=== PATIENT | female | born 1950 | race Caucasian/White ===

== ENCOUNTER → 2018-09-24 | Outpatient (REF) | payer MEDICARE ==
[2018-09-24 14:07] LABS: BASO % 0.5 % (0.0-1.0); EOS # 0.1 10^3/uL (0.0-0.50); EOS % 1.2 % (0.0-3.0); HEMATOCRIT 45.5 % (36.0-47.0); HEMOGLOBIN 14.9 g/dl (12.0-15.5); LYMPH # 2.5 10^3/uL (1.5-4.5); LYMPH % 41.4 % (24.0-44.0); MEAN CORPUSCULAR HEMOGLOBIN 33.3 pg (27.0-33.0); MEAN CORPUSCULAR HGB CONC 32.7 g/dl (32.0-36.5); MEAN CORPUSCULAR VOLUME 101.8 fl (80.0-96.0); MONO # 0.5 10^3/uL (0.0-0.8); MONO % 8.4 % (0.0-5.0); NEUTROPHILS # 2.9 10^3/uL (1.8-7.7); NEUTROPHILS % 48.2 % (36.0-66.0); PLATELET COUNT, AUTOMATED 219 10^3/uL (150-450); RED BLOOD COUNT 4.47 10^6/uL (4.00-5.40); WHITE BLOOD COUNT 5.9 10^3/uL (4.0-10.0)
[2018-09-24 14:36] LABS: ERYTHROCYTE SEDIMENTATION RATE 34 mm/hr (0-30)
[2018-09-25 11:10] LABS: HEMOGLOBIN A1c 5.1 %
[2018-09-29 09:18] LABS: DRVV SCREEN 46.8 SEC
[2018-09-29 09:30] LABS: PTT LUPUS TYPE ANTICOAG SCREEN 1.1 (0-1.2)
[2018-09-29 14:13] LABS: ANCA-ATYPICAL <1:20 titer (Neg:<1:20); ANGIOTENSIN 1 CONVERTING ENZYM 50 U/L (14-82); ANTI DOUBLE STRAND-DNA AB <1 IU/mL (0-9); ANTINUCLEAR ANTIBODIES DIRECT Negative (Negative); CYTOPLASMIC NEUTROP AB ANCA-C <1:20 titer (Neg:<1:20); Lyme Disease IgG Ab 18 kDa Ban Absent (.); Lyme Disease IgG Ab 23 kDa Ban Absent (.); Lyme Disease IgG Ab 28 kDa Ban Absent (.); Lyme Disease IgG Ab 30 kDa Ban Absent (.); Lyme Disease IgG Ab 39 kDa Ban Absent (.); Lyme Disease IgG Ab 41 kDa Ban Absent (.); Lyme Disease IgG Ab 45 kDa Ban Absent (.); Lyme Disease IgG Ab 58 kDa Ban Absent (.); Lyme Disease IgG Ab 66 kDa Ban Absent (.); Lyme Disease IgG Ab 93 kDa Ban Absent (.); Lyme Disease IgG West Blot Int Negative (.); Lyme Disease IgG/IgM Antibodie <0.91 ISR (0.00-0.90); Lyme Disease IgM Ab 23 kDa Ban Present (.); Lyme Disease IgM Ab 39 kDa Ban Present (.); Lyme Disease IgM Ab 41 kDa Ban Present (.); Lyme Disease IgM Ab Quantitati 1.55 index (0.00-0.79); Lyme Disease IgM West Blot Int Positive (.); PERINUCLEAR AB ANCA-P <1:20 titer (Neg:<1:20); SJOGREN'S ANTI SS-A <0.2 AI (0.0-0.9); SJOGREN'S ANTI SS-B <0.2 AI (0.0-0.9); VITAMIN B1 LEVEL WHOLE BLOOD 41.5 nmol/L (66.5-200.0); VITAMIN E(ALPHA TOCOPHEROL) 9.9 mg/L (9.0-29.0); VITAMIN E(GAMMA TOCOPHEROL) 4.4 mg/L (0.5-4.9)
[2018-10-01 13:22] LABS: BLOOD UREA NITROGEN 20 MG/DL (7-18); CARBON DIOXIDE LEVEL 19 MEQ/L (21-32); CREATININE FOR GFR 1.11 MG/DL (0.55-1.30); GLOMERULAR FILTRATION RATE 52.4 (>45); GLUCOSE, FASTING 88 MG/DL (70-100); POTASSIUM SERUM 4.4 MEQ/L (3.5-5.1); SODIUM LEVEL 142 MEQ/L (136-145)
[2018-10-01 13:23] LABS: CALCIUM LEVEL 9.3 MG/DL (8.8-10.2)
[2018-10-01 13:24] LABS: CHLORIDE LEVEL 103 MEQ/L (98-107)
[2018-10-01 13:29] LABS: ALT/SGPT 6 U/L (12-78); BILIRUBIN,TOTAL < 0.2 MG/DL (0.2-1.0)
[2018-10-01 13:30] LABS: ALBUMIN 4.2 GM/DL (3.2-5.2); FOLATE 5.5 NG/ML; RHEUMATOID FACTOR QUANT < 10.0 IU/ML (<15.0); THYROID STIMULATING HORMONE 0.535 uIU/ML (0.358-3.740); VITAMIN B12 LEVEL 581 PG/ML
== END ==
LOC: M LABNEURO 11:05
PROVIDERS: ATTEND Psychiatry & Neurology Neurology
DX: R42 Dizziness and giddiness (principal); R94.02 Abnormal brain scan

== ENCOUNTER → 2021-06-14 | Outpatient (REF) | payer MEDICARE | LOC: M LAB REF 17:08 | PROVIDERS: ATTEND Internal Medicine Nephrology | DX: N18.32 Chronic kidney disease, stage 3b (principal) ==

== ENCOUNTER → 2021-09-18 | Outpatient (CLI) | payer MEDICARE ==
--- NOTE | 2021-09-18 10:49 | REP ---
INDICATION: CKD STAGE 3 COMPARISON: None TECHNIQUE: Real time caballero scale ultrasound examination using curved array transducer followed by color Doppler evaluation of the renal vasculature. FINDINGS: The bilateral kidneys are normal in reniform shape and increased parenchymal echotexture consistent with medical renal disease. No hydronephrosis, nephrolithiasis, or cystic/mass lesions appreciated. Bladder is unremarkable. Right kidney measures 9.7 x 4.2 x 5.1 cm. Left kidney measures 7.8 x 3.6 x 4.1 cm. Color Doppler evaluation. Peak aortic velocity: 61.2 set centimeters/second RIGHT KIDNEY Renal arterial velocity: ND centimeters/second Renal-aortic ratio: 1.1 Intrarenal resistive indices: 0.76-0.77 Intrarenal acceleration times: 0.025-0.042 LEFT KIDNEY Renal arterial velocity: 60.2 centimeters/second Renal-aortic ratio: 0.98 Intrarenal resistive indices: 0.56-0.73 Intrarenal acceleration times: 0.033-0.050 IMPRESSION: 1. Evidence for chronic medical renal disease. No hydronephrosis. 2. Doppler interegation without sonographic evidence for renal arterial stenosis. <Electronically signed by Low Owen > 09/18/21 [id number]
== END ==
LOC: M RAD 09:04
PROVIDERS: ATTEND Surgery Vascular Surgery
DX: I70.1 Atherosclerosis of renal artery (principal); N18.30 Chronic kidney disease, stage 3 unspecified

== ENCOUNTER 2021-12-22 23:23 | Inpatient (IN) | payer MEDICARE ==
[~2021-12-22] VITALS: Ht 152.4 cm; Wt 108.7 kg
[2021-12-23] VITALS (59 sets, daily range): BP systolic 73–149; BP diastolic 50–79
[2021-12-23] MEDS ORDERED: NOREPINEPHRINE 4 MG/4 ML AMP As Ordered ONE (00:52)
[2021-12-23] MEDS ORDERED: PHENYLEPHRINE HCL INJ 50 MG in D5W 495 ML IV SCH (01:35)
[2021-12-23] MEDS ORDERED: ALBUTEROL 90 MCG/ACT 8GM HFA INHALER INH PRN (02:10)
[2021-12-23] MEDS ORDERED: IPRATROPIUM 0.5MG/ALBUTEROL 2.5MG INH SOL UD 3ML (DUONEB) NEB PRN ×2 (02:10→09:55)
[2021-12-23 02:38] LABS: MEAN CORPUSCULAR HEMOGLOBIN 32.9 pg (27.0-33.0); MEAN CORPUSCULAR HGB CONC 32.3 g/dl (32.0-36.5); RED BLOOD COUNT 3.04 10^6/uL (4.00-5.40); WHITE BLOOD COUNT 4.7 10^3/uL (4.0-10.0)
[2021-12-23 02:50] LABS: APPEARANCE, URINE MANUAL HAZY (CLEAR); COLOR, URINE MANUAL YELLOW (YELLOW); GLUCOSE, URINE (UA) MANUAL NEGATIVE (NEGATIVE); KETONE, URINE MANUAL NEGATIVE (NEGATIVE); PROTEIN, URINE MANUAL NEGATIVE (NEGATIVE); UROBILINOGEN, URINE MANUAL NORMAL (NORMAL)
[2021-12-23 02:51] LABS: BILIRUBIN, URINE MANUAL 1+ (NEGATIVE); BLOOD URINE MANUAL TRACE (NEGATIVE); LEUKOCYTE ESTERASE, URINE MAN NEGATIVE (NEGATIVE); NITRITE, URINE MANUAL NEGATIVE (NEGATIVE)
[2021-12-23 02:57] LABS: BACTERIA, URINE NONE SEEN; SQUAMOUS EPITHELIAL CELL URINE NONE SEEN /hpf (SMALL AMT); TRANSITIONAL EPI CELLS, URINE MOD AMOUNT /hpf; WBC, URINE NONE SEEN /hpf (0-3)
[2021-12-23 02:58] LABS: AMORPHOUS SEDIMENT, URINE MOD AMOUNT (NEGATIVE)
[2021-12-23 03:01] LABS: CALCIUM LEVEL 8.1 MG/DL (8.8-10.2); CREATININE FOR GFR 2.68 MG/DL (0.55-1.30); GLOMERULAR FILTRATION RATE 18.8 (>45); POTASSIUM SERUM 3.5 MEQ/L (3.5-5.1)
[2021-12-23 03:08] LABS: PLATELET COUNT, AUTOMATED 56 10^3/uL (150-450)
[2021-12-23] MEDS ORDERED: VANCOMYCIN HCL 1,500 MG, VIAL MATE ADAPTER 1 EACH in NS 250 ML IV SCH (03:20)
[2021-12-23] MEDS ORDERED: NS 500 ML IV ONE ×3 (03:20→13:25)
[2021-12-23] MEDS ORDERED: NS 1,000 ML IV SCH (03:20)
[2021-12-23] MEDS ORDERED: ELIQ5TAB PO (03:32)
[2021-12-23] MEDS ORDERED: ANAS1TAB2 PO (03:32)
[2021-12-23] MEDS ORDERED: ALBU83IN NEB (03:32)
[2021-12-23] MEDS ORDERED: MIDO5TA PO (03:32)
[2021-12-23] MEDS ORDERED: FLUT1BLS8 IH (03:32)
[2021-12-23] MEDS ORDERED: MYRB50TA PO (03:32)
[2021-12-23] MEDS ORDERED: METO50TA7 PO (03:32)
[2021-12-23] MEDS ORDERED: ARIP10TA32 PO (03:32)
[2021-12-23] MEDS ORDERED: FARX1TAB3 PO (03:32)
[2021-12-23] MEDS ORDERED: ZOLO100T PO (03:32)
[2021-12-23] MEDS ORDERED: ASPI81CH33 PO (03:32)
[2021-12-23] MEDS ORDERED: PRED10TA2 PO (03:32)
[2021-12-23] MEDS ORDERED: TORS20TA2 PO (03:32)
[2021-12-23] MEDS ORDERED: PROT1TAB2 PO (03:32)
[2021-12-23] MEDS ORDERED: HOME MED LIST COMPLETE! XX SCH (03:35)
[2021-12-23] MEDS ORDERED: DIGOXIN INJ 0.5 MG/2 ML AMP (J1160) IV ONE ×2 (04:00→09:50)
[2021-12-23] MEDS ORDERED: PIPERACILLIN/TAZOBACTAM SOD 4.5 GM in D5W MINI-BAG PLUS 50 ML IV ONE (04:00)
[2021-12-23 04:16] LABS: ALBUMIN 2.3 GM/DL (3.2-5.2); BILIRUBIN,DIRECT 0.7 MG/DL (0.0-0.2); BILIRUBIN,TOTAL 1.9 MG/DL (0.2-1.0); TOTAL PROTEIN 5.5 GM/DL (6.4-8.2)
[2021-12-23 04:24] LABS: PLTBLUE- EDTA FREE CALC 36 K/mm3 (172-450)
[2021-12-23 04:50] LABS: PLTBLUE- EDTA FREE MACHINE 33 10^3/uL (172-450)
[2021-12-23] MEDS: VANCOMYCIN HCL 1,000 MG, VIAL MATE ADAPTER 1 EACH in NS 250 ML IV SCH (05:00)
[2021-12-23] MEDS ORDERED: VANCOMYCIN HCL 1,000 MG, VIAL MATE ADAPTER 1 EACH in NS 250 ML IV ONE (06:00)
[2021-12-23 08:32] LABS: HEMATOCRIT 29.7 % (36.0-47.0); HEMOGLOBIN 9.4 g/dl (12.0-15.5); MEAN CORPUSCULAR HEMOGLOBIN 32.9 pg (27.0-33.0); MEAN CORPUSCULAR HGB CONC 31.6 g/dl (32.0-36.5); MEAN CORPUSCULAR VOLUME 103.8 fl (80.0-96.0); RED BLOOD COUNT 2.86 10^6/uL (4.00-5.40); WHITE BLOOD COUNT 2.4 10^3/uL (4.0-10.0)
[2021-12-23 08:40] LABS: PLATELET COUNT, AUTOMATED 47 10^3/uL (150-450)
[2021-12-23 08:54] LABS: ALBUMIN 2.1 GM/DL (3.2-5.2); BILIRUBIN,TOTAL 2.1 MG/DL (0.2-1.0); CALCIUM LEVEL 7.9 MG/DL (8.8-10.2); CREATININE FOR GFR 2.31 MG/DL (0.55-1.30); GLOMERULAR FILTRATION RATE 22.3 (>45); POTASSIUM SERUM 4.1 MEQ/L (3.5-5.1); TOTAL PROTEIN 5.3 GM/DL (6.4-8.2)
[2021-12-23 09:17] LABS: EOSINOPHILS 1 % (0-3); LYMPHOCYTES 24 % (16-44); MONOCYTES 4 % (0-5); NEUTROPHILS 44 % (28-66)
[2021-12-23 09:20] LABS: PLATELET ESTIMATE MARKED DECREASE (NORMAL); POLYCHROMASIA 1+
[2021-12-23 09:52] LABS: INR 1.89; PROTHROMBIN TIME 22.1 SECONDS (12.7-14.5)
[2021-12-23] MEDS ORDERED: MIDODRINE 5 MG TAB PO SCH (10:00)
[2021-12-23] MEDS: MIDODRINE 5 MG TAB PO SCH ×2 (11:21→15:23)
[2021-12-23] MEDS: PIPERACILLIN/TAZOBACTAM SOD 4.5 GM in D5W MINI-BAG PLUS 50 ML IV SCH ×2 (11:35→20:21)
[2021-12-23] MEDS ORDERED: NS 1,000 ML IV ONE (12:00)
[2021-12-23] MEDS: NOREPINEPHRINE BITARTRATE 8 MG in D5W 492 ML IV SCH ×2 (14:00→20:21)
[2021-12-23] MEDS: PANTOPRAZOLE 20 MG TAB PO SCH (15:23)
[2021-12-23] MEDS: LEVALBUTEROL 1.25 MG/0.5 ML CONCENTRATE NEB NEB SCH ×2 (16:00→19:30)
[2021-12-24] VITALS (71 sets, daily range): BP systolic 75–126; BP diastolic 41–80
[2021-12-24] MEDS ORDERED: UNRESOLVED CLARIFICATION ENTRY XX SCH (00:01)
[2021-12-24] MEDS: PIPERACILLIN/TAZOBACTAM SOD 4.5 GM in D5W MINI-BAG PLUS 50 ML IV SCH ×3 (04:21→20:35)
[2021-12-24] MEDS: VANCOMYCIN HCL 1,000 MG, VIAL MATE ADAPTER 1 EACH in NS 250 ML IV SCH (05:32)
[2021-12-24 05:46] LABS: HEMATOCRIT 22.9 % (36.0-47.0); MEAN CORPUSCULAR HEMOGLOBIN 33.2 pg (27.0-33.0); MEAN CORPUSCULAR HGB CONC 31.9 g/dl (32.0-36.5); MEAN CORPUSCULAR VOLUME 104.1 fl (80.0-96.0); WHITE BLOOD COUNT 3.1 10^3/uL (4.0-10.0)
[2021-12-24 05:52] LABS: HEMOGLOBIN 7.3 g/dl (12.0-15.5); PLATELET COUNT, AUTOMATED 39 10^3/uL (150-450)
[2021-12-24 06:31] LABS: ALBUMIN 1.6 GM/DL (3.2-5.2); BILIRUBIN,TOTAL 1.4 MG/DL (0.2-1.0); CALCIUM LEVEL 7.6 MG/DL (8.8-10.2); CREATININE FOR GFR 1.73 MG/DL (0.55-1.30); GLOMERULAR FILTRATION RATE 31.1 (>45); POTASSIUM SERUM 3.3 MEQ/L (3.5-5.1); TOTAL PROTEIN 4.6 GM/DL (6.4-8.2)
[2021-12-24] MEDS ORDERED: POTASSIUM CHLORIDE 10MEQ SR TABLET PO ONE (07:45)
[2021-12-24] MEDS: LEVALBUTEROL 1.25 MG/0.5 ML CONCENTRATE NEB NEB SCH ×4 (08:02→20:16)
[2021-12-24] MEDS: TIOTROPIUM INHALER/CAPSULE (SPIRIVA) INH SCH (08:02)
[2021-12-24] MEDS: PANTOPRAZOLE 20 MG TAB PO SCH (08:16)
[2021-12-24] MEDS: MIDODRINE 5 MG TAB PO SCH ×3 (08:16→16:23)
[2021-12-24 13:10] LABS: CORTISOL AM 38.7 UG/DL (4.3-22.4)
[2021-12-24 13:53] LABS: LYMPHOCYTES 22 % (16-44); MONOCYTES 5 % (0-5); NEUTROPHILS 68 % (28-66)
[2021-12-24 13:54] LABS: ANISOCYTOSIS 1+; PLATELET ESTIMATE MARKED DECREASE (NORMAL)
[2021-12-24 14:47] LABS: EOS % 0.3 % (0.0-3.0); HEMOGLOBIN 7.5 g/dl (12.0-15.5); LYMPH # 0.4 10^3/uL (1.5-5.0); LYMPH % 12.4 % (24.0-44.0); MEAN CORPUSCULAR HEMOGLOBIN 32.8 pg (27.0-33.0); MEAN CORPUSCULAR HGB CONC 31.3 g/dl (32.0-36.5); MEAN CORPUSCULAR VOLUME 104.8 fl (80.0-96.0); MONO # 0.2 10^3/uL (0.0-0.8); MONO % 5.5 % (2.0-8.0); NEUTROPHILS # 2.8 10^3/uL (1.5-8.5); NEUTROPHILS % 81.8 % (36.0-66.0); RED BLOOD COUNT 2.29 10^6/uL (4.00-5.40); WHITE BLOOD COUNT 3.5 10^3/uL (4.0-10.0)
[2021-12-24 14:49] LABS: PLATELET COUNT, AUTOMATED 44 10^3/uL (150-450)
[2021-12-24 18:03] LABS: ALBUMIN 1.8 GM/DL (3.2-5.2); BILIRUBIN,TOTAL 1.1 MG/DL (0.2-1.0); CALCIUM LEVEL 8.3 MG/DL (8.8-10.2); CREATININE FOR GFR 1.58 MG/DL (0.55-1.30); GLOMERULAR FILTRATION RATE 34.5 (>45); POTASSIUM SERUM 3.6 MEQ/L (3.5-5.1); TOTAL PROTEIN 4.9 GM/DL (6.4-8.2)
[2021-12-24] MEDS: LEVALBUTEROL 1.25 MG/0.5 ML CONCENTRATE NEB NEB PRN (18:21)
[2021-12-24] MEDS ORDERED: FUROSEMIDE 40MG/4ML VIAL (J1940) IV ONE (19:05)
[2021-12-25] VITALS (28 sets, daily range): BP systolic 88–129; BP diastolic 58–83
[2021-12-25] MEDS: PIPERACILLIN/TAZOBACTAM SOD 4.5 GM in D5W MINI-BAG PLUS 50 ML IV SCH ×3 (04:23→20:02)
[2021-12-25] MEDS ORDERED: FUROSEMIDE 40MG/4ML VIAL (J1940) IV ONE (04:35)
[2021-12-25 04:37] LABS: HEMATOCRIT 22.7 % (36.0-47.0); HEMOGLOBIN 7.3 g/dl (12.0-15.5); LYMPH # 0.5 10^3/uL (1.5-5.0); LYMPH % 18.4 % (24.0-44.0); MEAN CORPUSCULAR HEMOGLOBIN 33.5 pg (27.0-33.0); MEAN CORPUSCULAR HGB CONC 32.2 g/dl (32.0-36.5); MEAN CORPUSCULAR VOLUME 104.1 fl (80.0-96.0); MONO # 0.2 10^3/uL (0.0-0.8); MONO % 5.8 % (2.0-8.0); NEUTROPHILS # 2.2 10^3/uL (1.5-8.5); NEUTROPHILS % 74.1 % (36.0-66.0); RED BLOOD COUNT 2.18 10^6/uL (4.00-5.40); WHITE BLOOD COUNT 2.9 10^3/uL (4.0-10.0)
[2021-12-25 04:38] LABS: PLATELET COUNT, AUTOMATED 47 10^3/uL (150-450)
[2021-12-25 05:00] LABS: ALBUMIN 1.7 GM/DL (3.2-5.2); CREATININE FOR GFR 1.62 MG/DL (0.55-1.30); GLOMERULAR FILTRATION RATE 33.5 (>45); POTASSIUM SERUM 3.4 MEQ/L (3.5-5.1); VANCOMYCIN LEVEL TROUGH 16.2 UG/ML (10.0-20.0)
[2021-12-25] MEDS: VANCOMYCIN HCL 1,000 MG, VIAL MATE ADAPTER 1 EACH in NS 250 ML IV SCH (05:25)
[2021-12-25] MEDS ORDERED: POTASSIUM CHLORIDE 10MEQ SR TABLET PO ONE ×2 (05:50→09:00)
[2021-12-25] MEDS: TIOTROPIUM INHALER/CAPSULE (SPIRIVA) INH SCH (08:05)
[2021-12-25] MEDS: LEVALBUTEROL 1.25 MG/0.5 ML CONCENTRATE NEB NEB SCH ×4 (08:05→20:10)
[2021-12-25] MEDS: PANTOPRAZOLE 20 MG TAB PO SCH (08:15)
[2021-12-25] MEDS: MIDODRINE 5 MG TAB PO SCH ×3 (08:15→17:04)
[2021-12-25 08:17] LABS: MAGNESIUM LEVEL 2.1 MG/DL (1.8-2.4)
[2021-12-25] MEDS: METOPROLOL TART 12.5 MG PER 1/2 TAB PO SCH ×4 (08:58→23:51)
[2021-12-26] VITALS (23 sets, daily range): BP systolic 97–143; BP diastolic 59–101
[2021-12-26] MEDS: LEVALBUTEROL 1.25 MG/0.5 ML CONCENTRATE NEB NEB PRN (01:29)
[2021-12-26] MEDS: PIPERACILLIN/TAZOBACTAM SOD 4.5 GM in D5W MINI-BAG PLUS 50 ML IV SCH ×3 (04:17→20:16)
[2021-12-26 05:31] LABS: HEMATOCRIT 23.7 % (36.0-47.0); HEMOGLOBIN 7.2 g/dl (12.0-15.5); MEAN CORPUSCULAR HEMOGLOBIN 32.4 pg (27.0-33.0); MEAN CORPUSCULAR HGB CONC 30.4 g/dl (32.0-36.5); MEAN CORPUSCULAR VOLUME 106.8 fl (80.0-96.0); RED BLOOD COUNT 2.22 10^6/uL (4.00-5.40)
[2021-12-26] MEDS: VANCOMYCIN HCL 1,000 MG, VIAL MATE ADAPTER 1 EACH in NS 250 ML IV SCH (05:32)
[2021-12-26 05:35] LABS: PLATELET COUNT, AUTOMATED 68 10^3/uL (150-450)
[2021-12-26] MEDS: METOPROLOL TART 12.5 MG PER 1/2 TAB PO SCH ×3 (05:41→23:01)
[2021-12-26 06:25] LABS: ALBUMIN 1.8 GM/DL (3.2-5.2); BILIRUBIN,TOTAL 1.4 MG/DL (0.2-1.0); CALCIUM LEVEL 8.4 MG/DL (8.8-10.2); CREATININE FOR GFR 1.58 MG/DL (0.55-1.30); GLOMERULAR FILTRATION RATE 34.5 (>45); POTASSIUM SERUM 3.6 MEQ/L (3.5-5.1); TOTAL PROTEIN 5.7 GM/DL (6.4-8.2)
[2021-12-26] MEDS: TIOTROPIUM INHALER/CAPSULE (SPIRIVA) INH SCH (07:31)
[2021-12-26] MEDS: LEVALBUTEROL 1.25 MG/0.5 ML CONCENTRATE NEB NEB SCH ×4 (07:32→19:51)
[2021-12-26] MEDS: MIDODRINE 5 MG TAB PO SCH ×3 (08:35→16:26)
[2021-12-26] MEDS: PANTOPRAZOLE 20 MG TAB PO SCH (08:35)
[2021-12-26] MEDS ORDERED: POTASSIUM CHLORIDE 10% LIQ 20 MEQ/15 ML UDC PO ONE (10:05)
[2021-12-26] MEDS: methylPREDNISolone 125MG 2ML VIAL IV SCH ×2 (10:14→20:16)
[2021-12-26] MEDS: HEPARIN SOD (PORCINE) 5000UNITS/ML 1ML VIAL/SYRINGE SQ SCH ×3 (10:14→23:00)
[2021-12-26] MEDS ORDERED: METOPROLOL TART 25 MG TABLET PO SCH ×2 (12:00→18:00)
[2021-12-26] MEDS ORDERED: ONDANSETRON 4MG/2ML VIAL IV SCH (15:00)
[2021-12-26] MEDS ORDERED: ONDANSETRON 4MG/2ML VIAL IV PRN (15:05)
[2021-12-26 16:07] LABS: BASO % 0.4 % (0.0-1.0); EOS % 0.4 % (0.0-3.0); HEMATOCRIT 25.3 % (36.0-47.0); HEMOGLOBIN 7.6 g/dl (12.0-15.5); LYMPH # 0.3 10^3/uL (1.5-5.0); LYMPH % 9.6 % (24.0-44.0); MEAN CORPUSCULAR HEMOGLOBIN 32.5 pg (27.0-33.0); MEAN CORPUSCULAR VOLUME 108.1 fl (80.0-96.0); MONO # 0.1 10^3/uL (0.0-0.8); MONO % 3.6 % (2.0-8.0); NEUTROPHILS # 2.3 10^3/uL (1.5-8.5); NEUTROPHILS % 81.7 % (36.0-66.0); RED BLOOD COUNT 2.34 10^6/uL (4.00-5.40); WHITE BLOOD COUNT 2.8 10^3/uL (4.0-10.0)
[2021-12-26 16:08] LABS: BODY FLUID CULTURE Not indicated. (.); LEGIONELLA ANTIGEN URINE Negative (Negative); ORGANISM ID Not indicated. (.); SPECIMEN SOURCE Urine (.); URINE STREP PNEUMONIAE ANTIGEN Negative (Negative)
[2021-12-26 16:11] LABS: PLATELET COUNT, AUTOMATED 90 10^3/uL (150-450)
[2021-12-26] MEDS ORDERED: DIGOXIN INJ 0.5 MG/2 ML AMP (J1160) IV ONE (16:25)
[2021-12-26] MEDS: AZITHROMYCIN INJ 500 MG, VIAL MATE ADAPTER 1 EACH in NS 250 ML IV SCH (16:51)
[2021-12-27] VITALS (19 sets, daily range): BP systolic 93–148; BP diastolic 63–104
[2021-12-27] MEDS: PIPERACILLIN/TAZOBACTAM SOD 4.5 GM in D5W MINI-BAG PLUS 50 ML IV SCH ×3 (03:46→20:21)
[2021-12-27] MEDS: HEPARIN SOD (PORCINE) 5000UNITS/ML 1ML VIAL/SYRINGE SQ SCH ×3 (06:01→20:21)
[2021-12-27] MEDS: VANCOMYCIN HCL 1,000 MG, VIAL MATE ADAPTER 1 EACH in NS 250 ML IV SCH (06:01)
[2021-12-27] MEDS: METOPROLOL TART 12.5 MG PER 1/2 TAB PO SCH ×3 (06:01→18:32)
[2021-12-27] MEDS: TIOTROPIUM INHALER/CAPSULE (SPIRIVA) INH SCH (07:53)
[2021-12-27] MEDS: LEVALBUTEROL 1.25 MG/0.5 ML CONCENTRATE NEB NEB SCH ×4 (07:53→19:49)
[2021-12-27 08:21] LABS: BASO % 0.5 % (0.0-1.0); HEMATOCRIT 24.1 % (36.0-47.0); HEMOGLOBIN 7.2 g/dl (12.0-15.5); LYMPH # 0.4 10^3/uL (1.5-5.0); MEAN CORPUSCULAR HEMOGLOBIN 32.4 pg (27.0-33.0); MEAN CORPUSCULAR HGB CONC 29.9 g/dl (32.0-36.5); MEAN CORPUSCULAR VOLUME 108.6 fl (80.0-96.0); MONO # 0.2 10^3/uL (0.0-0.8); MONO % 7.5 % (2.0-8.0); NEUTROPHILS # 1.4 10^3/uL (1.5-8.5); PLATELET COUNT, AUTOMATED 97 10^3/uL (150-450); RED BLOOD COUNT 2.22 10^6/uL (4.00-5.40)
[2021-12-27] MEDS: PANTOPRAZOLE 20 MG TAB PO SCH (08:38)
[2021-12-27] MEDS: methylPREDNISolone 125MG 2ML VIAL IV SCH ×2 (08:38→20:21)
[2021-12-27] MEDS: MIDODRINE 5 MG TAB PO SCH ×3 (08:38→15:25)
[2021-12-27] MEDS: DIGOXIN 0.125 MG TAB PO SCH (08:39)
[2021-12-27 08:54] LABS: ALBUMIN 1.9 GM/DL (3.2-5.2); BILIRUBIN,TOTAL 0.7 MG/DL (0.2-1.0); CALCIUM LEVEL 8.3 MG/DL (8.8-10.2); CREATININE FOR GFR 1.58 MG/DL (0.55-1.30); GLOMERULAR FILTRATION RATE 34.5 (>45); MAGNESIUM LEVEL 2.4 MG/DL (1.8-2.4); POTASSIUM SERUM 4.3 MEQ/L (3.5-5.1); TOTAL PROTEIN 5.4 GM/DL (6.4-8.2)
[2021-12-27] MEDS ORDERED: LR 500 ML IV ONE (09:20)
[2021-12-27] MEDS: AZITHROMYCIN INJ 500 MG, VIAL MATE ADAPTER 1 EACH in NS 250 ML IV SCH (15:25)
[2021-12-28] VITALS (8 sets, daily range): BP systolic 86–168; BP diastolic 20–68
[2021-12-28] MEDS: METOPROLOL TART 12.5 MG PER 1/2 TAB PO SCH ×4 (00:29→17:09)
[2021-12-28] MEDS: PIPERACILLIN/TAZOBACTAM SOD 4.5 GM in D5W MINI-BAG PLUS 50 ML IV SCH ×3 (03:19→20:10)
[2021-12-28] MEDS: HEPARIN SOD (PORCINE) 5000UNITS/ML 1ML VIAL/SYRINGE SQ SCH ×3 (05:45→21:53)
[2021-12-28] MEDS: VANCOMYCIN HCL 1,000 MG, VIAL MATE ADAPTER 1 EACH in NS 250 ML IV SCH (05:45)
[2021-12-28 06:12] LABS: HEMATOCRIT 23.4 % (36.0-47.0); HEMOGLOBIN 7.1 g/dl (12.0-15.5); MEAN CORPUSCULAR HEMOGLOBIN 32.9 pg (27.0-33.0); MEAN CORPUSCULAR HGB CONC 30.3 g/dl (32.0-36.5); MEAN CORPUSCULAR VOLUME 108.3 fl (80.0-96.0); PLATELET COUNT, AUTOMATED 136 10^3/uL (150-450); RED BLOOD COUNT 2.16 10^6/uL (4.00-5.40); WHITE BLOOD COUNT 2.2 10^3/uL (4.0-10.0)
[2021-12-28 06:36] LABS: CALCIUM LEVEL 8.6 MG/DL (8.8-10.2); CREATININE FOR GFR 1.62 MG/DL (0.55-1.30); GLOMERULAR FILTRATION RATE 33.5 (>45)
[2021-12-28] MEDS: LEVALBUTEROL 1.25 MG/0.5 ML CONCENTRATE NEB NEB SCH ×4 (07:12→19:07)
[2021-12-28] MEDS: TIOTROPIUM INHALER/CAPSULE (SPIRIVA) INH SCH (07:12)
[2021-12-28] MEDS: PANTOPRAZOLE 20 MG TAB PO SCH (08:58)
[2021-12-28] MEDS: DIGOXIN 0.125 MG TAB PO SCH (08:59)
[2021-12-28] MEDS: MIDODRINE 5 MG TAB PO SCH ×3 (08:59→17:08)
[2021-12-28] MEDS: methylPREDNISolone 125MG 2ML VIAL IV SCH (09:26)
[2021-12-28 10:04] LABS: MAGNESIUM LEVEL 2.6 MG/DL (1.8-2.4)
[2021-12-28 17:10] LABS: MYCOPLASMA PNEUMONIAE IgG 251 U/mL (0-99); MYCOPLASMA PNEUMONIAE IgM <770 U/mL (0-769)
[2021-12-28] MEDS ORDERED: MIDODRINE 2.5 MG TAB PO ONE (21:45)
[2021-12-29] VITALS (8 sets, daily range): BP systolic 90–121; BP diastolic 52–85
[2021-12-29] MEDS: PIPERACILLIN/TAZOBACTAM SOD 4.5 GM in D5W MINI-BAG PLUS 50 ML IV SCH ×3 (04:11→20:03)
[2021-12-29] MEDS: HEPARIN SOD (PORCINE) 5000UNITS/ML 1ML VIAL/SYRINGE SQ SCH ×3 (06:08→22:17)
[2021-12-29] MEDS: METOPROLOL TART 12.5 MG PER 1/2 TAB PO SCH ×4 (06:09→17:52)
[2021-12-29] MEDS: TIOTROPIUM INHALER/CAPSULE (SPIRIVA) INH SCH (07:53)
[2021-12-29] MEDS: LEVALBUTEROL 1.25 MG/0.5 ML CONCENTRATE NEB NEB SCH ×4 (07:53→19:06)
[2021-12-29 08:50] LABS: HEMATOCRIT 25.1 % (36.0-47.0); HEMOGLOBIN 7.5 g/dl (12.0-15.5); MEAN CORPUSCULAR HEMOGLOBIN 32.3 pg (27.0-33.0); MEAN CORPUSCULAR HGB CONC 29.9 g/dl (32.0-36.5); MEAN CORPUSCULAR VOLUME 108.2 fl (80.0-96.0); PLATELET COUNT, AUTOMATED 241 10^3/uL (150-450); RED BLOOD COUNT 2.32 10^6/uL (4.00-5.40); WHITE BLOOD COUNT 4.2 10^3/uL (4.0-10.0)
[2021-12-29] MEDS: methylPREDNISolone 125MG 2ML VIAL IV SCH (09:26)
[2021-12-29 09:28] LABS: CALCIUM LEVEL 8.4 MG/DL (8.8-10.2); CREATININE FOR GFR 1.64 MG/DL (0.55-1.30); GLOMERULAR FILTRATION RATE 33.1 (>45); POTASSIUM SERUM 4.4 MEQ/L (3.5-5.1)
[2021-12-29] MEDS: MIDODRINE 5 MG TAB PO SCH ×3 (09:30→16:52)
[2021-12-29] MEDS: DIGOXIN 0.125 MG TAB PO SCH (09:30)
[2021-12-29] MEDS: PANTOPRAZOLE 20 MG TAB PO SCH (09:30)
[2021-12-29] MEDS: ASPIRIN 81 MG CHEW TABLET PO SCH (13:44)
[2021-12-29] MEDS: SERTRALINE 100 MG TAB PO SCH (13:45)
[2021-12-29] MEDS: ARIPiprazole 10 MG TAB PO SCH (15:18)
[2021-12-30] VITALS (11 sets, daily range): BP systolic 98–137; BP diastolic 53–87
[2021-12-30] MEDS: METOPROLOL TART 12.5 MG PER 1/2 TAB PO SCH ×4 (00:26→18:01)
[2021-12-30] MEDS: PIPERACILLIN/TAZOBACTAM SOD 4.5 GM in D5W MINI-BAG PLUS 50 ML IV SCH ×3 (04:31→19:43)
[2021-12-30 05:40] LABS: HEMATOCRIT 23.1 % (36.0-47.0); MEAN CORPUSCULAR HEMOGLOBIN 32.1 pg (27.0-33.0); MEAN CORPUSCULAR HGB CONC 29.4 g/dl (32.0-36.5); PLATELET COUNT, AUTOMATED 236 10^3/uL (150-450); RED BLOOD COUNT 2.12 10^6/uL (4.00-5.40); WHITE BLOOD COUNT 3.8 10^3/uL (4.0-10.0)
[2021-12-30 05:42] LABS: HEMOGLOBIN 6.8 g/dl (12.0-15.5)
[2021-12-30] MEDS: HEPARIN SOD (PORCINE) 5000UNITS/ML 1ML VIAL/SYRINGE SQ SCH ×3 (06:00→22:11)
[2021-12-30 06:02] LABS: CALCIUM LEVEL 8.3 MG/DL (8.8-10.2); CREATININE FOR GFR 1.7 MG/DL (0.55-1.30); GLOMERULAR FILTRATION RATE 31.7 (>45); POTASSIUM SERUM 4.6 MEQ/L (3.5-5.1)
[2021-12-30] MEDS: TIOTROPIUM INHALER/CAPSULE (SPIRIVA) INH SCH (07:04)
[2021-12-30] MEDS: LEVALBUTEROL 1.25 MG/0.5 ML CONCENTRATE NEB NEB SCH ×4 (07:04→17:34)
[2021-12-30] MEDS: ARIPiprazole 10 MG TAB PO SCH (10:22)
[2021-12-30] MEDS: PANTOPRAZOLE 40MG TAB (PROTONIX) PO SCH (10:22)
[2021-12-30] MEDS: SERTRALINE 100 MG TAB PO SCH (10:22)
[2021-12-30] MEDS: ASPIRIN 81 MG CHEW TABLET PO SCH (10:22)
[2021-12-30] MEDS: predniSONE 20 MG TAB PO SCH (10:23)
[2021-12-30] MEDS: DIGOXIN 0.125 MG TAB PO SCH (10:23)
[2021-12-30] MEDS: MIDODRINE 5 MG TAB PO SCH ×3 (10:24→16:37)
[2021-12-31] VITALS: BP 108/54
[2021-12-31] MEDS: METOPROLOL TART 12.5 MG PER 1/2 TAB PO SCH ×5 (00:23→23:32)
[2021-12-31 04:00] VITALS: BP 119/75
[2021-12-31] MEDS: PIPERACILLIN/TAZOBACTAM SOD 4.5 GM in D5W MINI-BAG PLUS 50 ML IV SCH (04:41)
[2021-12-31] MEDS: HEPARIN SOD (PORCINE) 5000UNITS/ML 1ML VIAL/SYRINGE SQ SCH (05:53)
[2021-12-31 06:05] LABS: HEMATOCRIT 27.1 % (36.0-47.0); HEMOGLOBIN 8.3 g/dl (12.0-15.5); MEAN CORPUSCULAR HEMOGLOBIN 31.7 pg (27.0-33.0); MEAN CORPUSCULAR HGB CONC 30.6 g/dl (32.0-36.5); MEAN CORPUSCULAR VOLUME 103.4 fl (80.0-96.0); PLATELET COUNT, AUTOMATED 293 10^3/uL (150-450); RED BLOOD COUNT 2.62 10^6/uL (4.00-5.40); WHITE BLOOD COUNT 5.1 10^3/uL (4.0-10.0)
[2021-12-31 06:27] LABS: CALCIUM LEVEL 8.8 MG/DL (8.8-10.2); CREATININE FOR GFR 1.54 MG/DL (0.55-1.30); GLOMERULAR FILTRATION RATE 35.6 (>45); POTASSIUM SERUM 4.5 MEQ/L (3.5-5.1)
[2021-12-31] MEDS: LEVALBUTEROL 1.25 MG/0.5 ML CONCENTRATE NEB NEB SCH ×2 (07:36→12:03)
[2021-12-31] MEDS: TIOTROPIUM INHALER/CAPSULE (SPIRIVA) INH SCH (07:36)
[2021-12-31 08:00] VITALS: BP 113/60
[2021-12-31] MEDS: ARIPiprazole 10 MG TAB PO SCH (08:52)
[2021-12-31] MEDS: MIDODRINE 5 MG TAB PO SCH ×3 (08:52→17:30)
[2021-12-31] MEDS: APIXABAN 5 MG TAB (ELIQUIS) PO SCH ×2 (08:53→20:48)
[2021-12-31] MEDS: predniSONE 20 MG TAB PO SCH (08:53)
[2021-12-31] MEDS: PANTOPRAZOLE 40MG TAB (PROTONIX) PO SCH (08:54)
[2021-12-31] MEDS: DIGOXIN 0.125 MG TAB PO SCH (08:54)
[2021-12-31] MEDS: CEFDINIR 300 MG CAP (OMNICEF) PO SCH ×2 (08:55→20:48)
[2021-12-31] MEDS: SERTRALINE 100 MG TAB PO SCH (08:55)
[2021-12-31] MEDS: ASPIRIN 81 MG CHEW TABLET PO SCH (08:56)
[2021-12-31 12:00] VITALS: BP 112/71
[2021-12-31] MEDS ORDERED: ALBUTEROL SULFATE 2.5 MG/0.5 ML INH NEB SOLN NEB PRN (15:00)
[2021-12-31 16:00] VITALS: BP 128/76
[2021-12-31] MEDS: ALBUTEROL SULFATE 2.5 MG/0.5 ML INH NEB SOLN NEB SCH ×2 (16:14→20:04)
[2021-12-31 19:10] LABS: L PNEUMOPHILIA 1-6 IgM < 1:16 (< 1:16); LEGIONELLA ANTIGEN URINE Negative (Negative)
[2021-12-31 20:00] VITALS: BP 106/54
[2022-01-01] VITALS: BP 113/63
[2022-01-01 04:00] VITALS: BP 106/53
[2022-01-01] MEDS: METOPROLOL TART 12.5 MG PER 1/2 TAB PO SCH ×3 (05:35→18:42)
[2022-01-01] MEDS: TIOTROPIUM INHALER/CAPSULE (SPIRIVA) INH SCH (07:27)
[2022-01-01] MEDS: ALBUTEROL SULFATE 2.5 MG/0.5 ML INH NEB SOLN NEB SCH ×5 (07:27→20:06)
[2022-01-01 08:00] VITALS: BP 121/83
[2022-01-01] MEDS ORDERED: FUROSEMIDE 40MG/4ML VIAL (J1940) IV ONE (09:25)
[2022-01-01] MEDS: MIDODRINE 5 MG TAB PO SCH ×3 (09:27→16:00)
[2022-01-01] MEDS: ASPIRIN 81 MG CHEW TABLET PO SCH (09:28)
[2022-01-01] MEDS: ARIPiprazole 10 MG TAB PO SCH (09:28)
[2022-01-01] MEDS: APIXABAN 5 MG TAB (ELIQUIS) PO SCH ×2 (09:29→22:55)
[2022-01-01] MEDS: predniSONE 20 MG TAB PO SCH (09:29)
[2022-01-01] MEDS: DIGOXIN 0.125 MG TAB PO SCH (09:32)
[2022-01-01] MEDS: PANTOPRAZOLE 40MG TAB (PROTONIX) PO SCH (09:32)
[2022-01-01] MEDS: CEFDINIR 300 MG CAP (OMNICEF) PO SCH ×2 (09:32→22:55)
[2022-01-01] MEDS: SERTRALINE 100 MG TAB PO SCH (09:33)
[2022-01-01 11:17] LABS: HEMATOCRIT 29.1 % (36.0-47.0); MEAN CORPUSCULAR HEMOGLOBIN 31.9 pg (27.0-33.0); MEAN CORPUSCULAR HGB CONC 30.9 g/dl (32.0-36.5); MEAN CORPUSCULAR VOLUME 103.2 fl (80.0-96.0); PLATELET COUNT, AUTOMATED 361 10^3/uL (150-450); RED BLOOD COUNT 2.82 10^6/uL (4.00-5.40); WHITE BLOOD COUNT 7.1 10^3/uL (4.0-10.0)
[2022-01-01 16:00] VITALS: BP 133/58
[2022-01-01 20:15] VITALS: BP 102/64
[2022-01-02] VITALS (7 sets, daily range): BP systolic 90–132; BP diastolic 55–78
[2022-01-02 06:30] LABS: HEMATOCRIT 26.7 % (36.0-47.0); HEMOGLOBIN 8.3 g/dl (12.0-15.5); MEAN CORPUSCULAR HEMOGLOBIN 31.9 pg (27.0-33.0); MEAN CORPUSCULAR HGB CONC 31.1 g/dl (32.0-36.5); MEAN CORPUSCULAR VOLUME 102.7 fl (80.0-96.0); PLATELET COUNT, AUTOMATED 336 10^3/uL (150-450); WHITE BLOOD COUNT 4.8 10^3/uL (4.0-10.0)
[2022-01-02] MEDS: METOPROLOL TART 12.5 MG PER 1/2 TAB PO SCH ×5 (06:39→23:56)
[2022-01-02 06:55] LABS: CALCIUM LEVEL 8.5 MG/DL (8.8-10.2); CREATININE FOR GFR 1.27 MG/DL (0.55-1.30); GLOMERULAR FILTRATION RATE 44.4 (>45); POTASSIUM SERUM 4.7 MEQ/L (3.5-5.1)
[2022-01-02] MEDS: TIOTROPIUM INHALER/CAPSULE (SPIRIVA) INH SCH (07:18)
[2022-01-02] MEDS: ALBUTEROL SULFATE 2.5 MG/0.5 ML INH NEB SOLN NEB SCH ×4 (07:18→19:52)
[2022-01-02] MEDS: MIDODRINE 5 MG TAB PO SCH ×3 (08:00→15:13)
[2022-01-02] MEDS: predniSONE 20 MG TAB PO SCH (09:02)
[2022-01-02] MEDS: DIGOXIN 0.125 MG TAB PO SCH (09:02)
[2022-01-02] MEDS: ARIPiprazole 10 MG TAB PO SCH (09:02)
[2022-01-02] MEDS: CEFDINIR 300 MG CAP (OMNICEF) PO SCH ×2 (09:02→20:25)
[2022-01-02] MEDS: APIXABAN 5 MG TAB (ELIQUIS) PO SCH ×2 (09:02→20:25)
[2022-01-02] MEDS: SERTRALINE 100 MG TAB PO SCH (09:02)
[2022-01-02] MEDS: PANTOPRAZOLE 40MG TAB (PROTONIX) PO SCH (09:02)
[2022-01-02] MEDS: ASPIRIN 81 MG CHEW TABLET PO SCH (09:03)
[2022-01-02] MEDS ORDERED: FUROSEMIDE 40MG/4ML VIAL (J1940) IV ONE (09:20)
[2022-01-02] MEDS: LACTOBACILLUS ACIDOPHILUS CAP (BACID) PO SCH ×2 (15:13→18:06)
[2022-01-03 05:26] VITALS: BP 121/82
[2022-01-03] MEDS: METOPROLOL TART 12.5 MG PER 1/2 TAB PO SCH ×4 (05:35→23:47)
[2022-01-03 06:43] LABS: HEMATOCRIT 26.6 % (36.0-47.0); HEMOGLOBIN 8.3 g/dl (12.0-15.5); MEAN CORPUSCULAR HEMOGLOBIN 32.2 pg (27.0-33.0); MEAN CORPUSCULAR HGB CONC 31.2 g/dl (32.0-36.5); MEAN CORPUSCULAR VOLUME 103.1 fl (80.0-96.0); PLATELET COUNT, AUTOMATED 359 10^3/uL (150-450); RED BLOOD COUNT 2.58 10^6/uL (4.00-5.40); WHITE BLOOD COUNT 4.9 10^3/uL (4.0-10.0)
[2022-01-03 07:10] LABS: CALCIUM LEVEL 9.1 MG/DL (8.8-10.2); CREATININE FOR GFR 1.41 MG/DL (0.55-1.30); GLOMERULAR FILTRATION RATE 39.4 (>45); POTASSIUM SERUM 4.2 MEQ/L (3.5-5.1)
[2022-01-03] MEDS: TIOTROPIUM INHALER/CAPSULE (SPIRIVA) INH SCH ×2 (07:11→09:58)
[2022-01-03] MEDS: ALBUTEROL SULFATE 2.5 MG/0.5 ML INH NEB SOLN NEB SCH ×4 (07:12→21:04)
[2022-01-03] MEDS: LACTOBACILLUS ACIDOPHILUS CAP (BACID) PO SCH ×3 (08:36→17:14)
[2022-01-03] MEDS: PANTOPRAZOLE 40MG TAB (PROTONIX) PO SCH (08:36)
[2022-01-03] MEDS: MIDODRINE 5 MG TAB PO SCH ×3 (08:36→17:13)
[2022-01-03] MEDS: DIGOXIN 0.125 MG TAB PO SCH (08:36)
[2022-01-03] MEDS: SERTRALINE 100 MG TAB PO SCH (08:37)
[2022-01-03] MEDS: ASPIRIN 81 MG CHEW TABLET PO SCH (08:37)
[2022-01-03] MEDS: ARIPiprazole 10 MG TAB PO SCH (08:37)
[2022-01-03] MEDS: APIXABAN 5 MG TAB (ELIQUIS) PO SCH ×2 (08:37→20:50)
[2022-01-03] MEDS: CEFDINIR 300 MG CAP (OMNICEF) PO SCH (08:37)
[2022-01-03] MEDS: predniSONE 20 MG TAB PO SCH (08:37)
[2022-01-03 14:52] VITALS: BP 121/72
[2022-01-04 06:00] VITALS: BP 114/72
[2022-01-04] MEDS: METOPROLOL TART 12.5 MG PER 1/2 TAB PO SCH ×3 (06:25→17:19)
[2022-01-04] MEDS: TIOTROPIUM INHALER/CAPSULE (SPIRIVA) INH SCH (07:40)
[2022-01-04] MEDS: ALBUTEROL SULFATE 2.5 MG/0.5 ML INH NEB SOLN NEB SCH ×4 (07:41→20:15)
[2022-01-04 07:53] LABS: HEMATOCRIT 26.7 % (36.0-47.0); HEMOGLOBIN 8.2 g/dl (12.0-15.5); MEAN CORPUSCULAR HGB CONC 30.7 g/dl (32.0-36.5); MEAN CORPUSCULAR VOLUME 104.3 fl (80.0-96.0); PLATELET COUNT, AUTOMATED 327 10^3/uL (150-450); RED BLOOD COUNT 2.56 10^6/uL (4.00-5.40); WHITE BLOOD COUNT 4.6 10^3/uL (4.0-10.0)
[2022-01-04 08:20] LABS: CALCIUM LEVEL 8.9 MG/DL (8.8-10.2); CREATININE FOR GFR 1.32 MG/DL (0.55-1.30); GLOMERULAR FILTRATION RATE 42.5 (>45); POTASSIUM SERUM 4.6 MEQ/L (3.5-5.1)
[2022-01-04] MEDS: SERTRALINE 100 MG TAB PO SCH (08:29)
[2022-01-04] MEDS: APIXABAN 5 MG TAB (ELIQUIS) PO SCH ×2 (08:29→20:25)
[2022-01-04] MEDS: ASPIRIN 81 MG CHEW TABLET PO SCH (08:29)
[2022-01-04] MEDS: LACTOBACILLUS ACIDOPHILUS CAP (BACID) PO SCH ×3 (08:29→17:19)
[2022-01-04] MEDS: PANTOPRAZOLE 40MG TAB (PROTONIX) PO SCH (08:29)
[2022-01-04] MEDS: MIDODRINE 5 MG TAB PO SCH ×3 (08:30→16:52)
[2022-01-04] MEDS: ARIPiprazole 10 MG TAB PO SCH (08:30)
[2022-01-04] MEDS: DIGOXIN 0.125 MG TAB PO SCH (08:30)
[2022-01-04] MEDS: predniSONE 20 MG TAB PO SCH (08:30)
[2022-01-04 20:00] VITALS: BP 105/56
[2022-01-05] VITALS: BP 90/60
[2022-01-05 04:00] VITALS: BP 108/59
[2022-01-05] MEDS: METOPROLOL TART 12.5 MG PER 1/2 TAB PO SCH ×4 (05:38→17:34)
[2022-01-05 06:29] LABS: HEMATOCRIT 25.9 % (36.0-47.0); HEMOGLOBIN 7.9 g/dl (12.0-15.5); MEAN CORPUSCULAR HEMOGLOBIN 32.4 pg (27.0-33.0); MEAN CORPUSCULAR HGB CONC 30.5 g/dl (32.0-36.5); MEAN CORPUSCULAR VOLUME 106.1 fl (80.0-96.0); PLATELET COUNT, AUTOMATED 347 10^3/uL (150-450); RED BLOOD COUNT 2.44 10^6/uL (4.00-5.40); WHITE BLOOD COUNT 4.7 10^3/uL (4.0-10.0)
[2022-01-05 06:55] LABS: CALCIUM LEVEL 8.6 MG/DL (8.8-10.2); CREATININE FOR GFR 1.22 MG/DL (0.55-1.30); GLOMERULAR FILTRATION RATE 46.5 (>45); POTASSIUM SERUM 4.3 MEQ/L (3.5-5.1)
[2022-01-05] MEDS: ALBUTEROL SULFATE 2.5 MG/0.5 ML INH NEB SOLN NEB SCH ×4 (07:22→19:24)
[2022-01-05] MEDS: TIOTROPIUM INHALER/CAPSULE (SPIRIVA) INH SCH (07:23)
[2022-01-05] MEDS: SERTRALINE 100 MG TAB PO SCH (08:55)
[2022-01-05] MEDS: predniSONE 20 MG TAB PO SCH (08:55)
[2022-01-05] MEDS: LACTOBACILLUS ACIDOPHILUS CAP (BACID) PO SCH ×3 (08:55→17:33)
[2022-01-05] MEDS: ARIPiprazole 10 MG TAB PO SCH (08:55)
[2022-01-05] MEDS: PANTOPRAZOLE 40MG TAB (PROTONIX) PO SCH (08:55)
[2022-01-05] MEDS: DIGOXIN 0.125 MG TAB PO SCH (08:56)
[2022-01-05] MEDS: MIDODRINE 5 MG TAB PO SCH ×3 (08:56→17:32)
[2022-01-05 08:59] VITALS: BP 93/66
[2022-01-05 09:10] VITALS: BP 98/64
[2022-01-05] MEDS: APIXABAN 5 MG TAB (ELIQUIS) PO SCH ×2 (10:41→20:19)
[2022-01-05] MEDS: ASPIRIN 81 MG CHEW TABLET PO SCH (10:41)
[2022-01-05 20:00] VITALS: BP 110/82
[2022-01-05] MEDS ORDERED: PANTOPRAZOLE 40MG TAB (PROTONIX) PO ONE (21:00)
[2022-01-06] VITALS (9 sets, daily range): BP systolic 105–143; BP diastolic 51–74
[2022-01-06] MEDS: METOPROLOL TART 12.5 MG PER 1/2 TAB PO SCH ×4 (00:09→17:22)
[2022-01-06] MEDS: TIOTROPIUM INHALER/CAPSULE (SPIRIVA) INH SCH (07:40)
[2022-01-06] MEDS: ALBUTEROL SULFATE 2.5 MG/0.5 ML INH NEB SOLN NEB SCH ×4 (07:40→20:23)
[2022-01-06 08:04] LABS: HEMATOCRIT 24.8 % (36.0-47.0); HEMOGLOBIN 7.5 g/dl (12.0-15.5); MEAN CORPUSCULAR HEMOGLOBIN 31.8 pg (27.0-33.0); MEAN CORPUSCULAR HGB CONC 30.2 g/dl (32.0-36.5); MEAN CORPUSCULAR VOLUME 105.1 fl (80.0-96.0); PLATELET COUNT, AUTOMATED 316 10^3/uL (150-450); RED BLOOD COUNT 2.36 10^6/uL (4.00-5.40); WHITE BLOOD COUNT 4.7 10^3/uL (4.0-10.0)
[2022-01-06 08:25] LABS: CALCIUM LEVEL 8.6 MG/DL (8.8-10.2); CREATININE FOR GFR 1.23 MG/DL (0.55-1.30); GLOMERULAR FILTRATION RATE 46.1 (>45); POTASSIUM SERUM 4.3 MEQ/L (3.5-5.1)
[2022-01-06] MEDS: ARIPiprazole 10 MG TAB PO SCH (08:54)
[2022-01-06] MEDS: LACTOBACILLUS ACIDOPHILUS CAP (BACID) PO SCH ×3 (08:54→17:21)
[2022-01-06] MEDS: ASPIRIN 81 MG CHEW TABLET PO SCH (08:54)
[2022-01-06] MEDS: APIXABAN 5 MG TAB (ELIQUIS) PO SCH ×2 (08:54→21:08)
[2022-01-06] MEDS: PANTOPRAZOLE 40MG TAB (PROTONIX) PO SCH ×2 (08:54→21:08)
[2022-01-06] MEDS: SERTRALINE 100 MG TAB PO SCH (08:54)
[2022-01-06] MEDS: predniSONE 20 MG TAB PO SCH (08:54)
[2022-01-06] MEDS: MIDODRINE 5 MG TAB PO SCH ×3 (08:55→16:31)
[2022-01-06] MEDS: DIGOXIN 0.125 MG TAB PO SCH (09:01)
[2022-01-07] MEDS: METOPROLOL TART 12.5 MG PER 1/2 TAB PO SCH ×4 (00:22→16:48)
[2022-01-07 06:13] VITALS: BP 139/89
[2022-01-07] MEDS: TIOTROPIUM INHALER/CAPSULE (SPIRIVA) INH SCH (07:39)
[2022-01-07] MEDS: ALBUTEROL SULFATE 2.5 MG/0.5 ML INH NEB SOLN NEB SCH ×4 (07:39→20:43)
[2022-01-07] MEDS: ASPIRIN 81 MG CHEW TABLET PO SCH (09:00)
[2022-01-07] MEDS: predniSONE 20 MG TAB PO SCH (09:00)
[2022-01-07] MEDS: LACTOBACILLUS ACIDOPHILUS CAP (BACID) PO SCH ×3 (09:00→16:47)
[2022-01-07] MEDS: SERTRALINE 100 MG TAB PO SCH (09:00)
[2022-01-07] MEDS: ARIPiprazole 10 MG TAB PO SCH (09:01)
[2022-01-07] MEDS: DIGOXIN 0.125 MG TAB PO SCH (09:01)
[2022-01-07] MEDS: APIXABAN 5 MG TAB (ELIQUIS) PO SCH ×2 (09:01→20:07)
[2022-01-07] MEDS: PANTOPRAZOLE 40MG TAB (PROTONIX) PO SCH ×2 (09:01→20:07)
[2022-01-07] MEDS: MIDODRINE 5 MG TAB PO SCH ×3 (09:01→16:48)
[2022-01-08] MEDS: METOPROLOL TART 12.5 MG PER 1/2 TAB PO SCH ×5 (00:36→23:40)
[2022-01-08 05:55] VITALS: BP 120/78
[2022-01-08] MEDS: ALBUTEROL SULFATE 2.5 MG/0.5 ML INH NEB SOLN NEB SCH ×4 (07:36→19:53)
[2022-01-08] MEDS: TIOTROPIUM INHALER/CAPSULE (SPIRIVA) INH SCH (07:36)
[2022-01-08] MEDS: PANTOPRAZOLE 40MG TAB (PROTONIX) PO SCH ×2 (08:15→21:02)
[2022-01-08] MEDS: SERTRALINE 100 MG TAB PO SCH (08:16)
[2022-01-08] MEDS: LACTOBACILLUS ACIDOPHILUS CAP (BACID) PO SCH ×3 (08:16→16:44)
[2022-01-08] MEDS: MIDODRINE 5 MG TAB PO SCH ×3 (08:16→16:44)
[2022-01-08] MEDS: APIXABAN 5 MG TAB (ELIQUIS) PO SCH ×2 (08:16→21:03)
[2022-01-08] MEDS: predniSONE 20 MG TAB PO SCH (08:16)
[2022-01-08] MEDS: ARIPiprazole 10 MG TAB PO SCH (08:16)
[2022-01-08] MEDS: DIGOXIN 0.125 MG TAB PO SCH (08:16)
[2022-01-08] MEDS: ASPIRIN 81 MG CHEW TABLET PO SCH (08:16)
[2022-01-08] MEDS ORDERED: FUROSEMIDE 20 MG TAB PO ONE (19:35)
[2022-01-09] MEDS: METOPROLOL TART 12.5 MG PER 1/2 TAB PO SCH ×3 (05:25→17:05)
[2022-01-09 06:00] VITALS: BP 125/69
[2022-01-09] MEDS: ALBUTEROL SULFATE 2.5 MG/0.5 ML INH NEB SOLN NEB SCH ×4 (07:41→20:21)
[2022-01-09] MEDS: TIOTROPIUM INHALER/CAPSULE (SPIRIVA) INH SCH (07:41)
[2022-01-09] MEDS: ASPIRIN 81 MG CHEW TABLET PO SCH (08:56)
[2022-01-09] MEDS: ARIPiprazole 10 MG TAB PO SCH (08:57)
[2022-01-09] MEDS: predniSONE 20 MG TAB PO SCH (08:57)
[2022-01-09] MEDS: DIGOXIN 0.125 MG TAB PO SCH (08:57)
[2022-01-09] MEDS: MIDODRINE 5 MG TAB PO SCH ×3 (08:57→17:05)
[2022-01-09] MEDS: LACTOBACILLUS ACIDOPHILUS CAP (BACID) PO SCH ×3 (08:57→17:05)
[2022-01-09] MEDS: SERTRALINE 100 MG TAB PO SCH (08:57)
[2022-01-09] MEDS: APIXABAN 5 MG TAB (ELIQUIS) PO SCH ×2 (08:57→21:47)
[2022-01-09] MEDS: PANTOPRAZOLE 40MG TAB (PROTONIX) PO SCH ×2 (08:58→21:47)
[2022-01-09 12:41] VITALS: BP 118/82
[2022-01-10] MEDS: METOPROLOL TART 12.5 MG PER 1/2 TAB PO SCH ×4 (00:50→17:07)
[2022-01-10 06:00] VITALS: BP 120/80
[2022-01-10] MEDS: TIOTROPIUM INHALER/CAPSULE (SPIRIVA) INH SCH (07:23)
[2022-01-10] MEDS: ALBUTEROL SULFATE 2.5 MG/0.5 ML INH NEB SOLN NEB SCH ×4 (07:23→17:53)
[2022-01-10] MEDS: ARIPiprazole 10 MG TAB PO SCH (08:32)
[2022-01-10] MEDS: LACTOBACILLUS ACIDOPHILUS CAP (BACID) PO SCH ×3 (08:32→17:07)
[2022-01-10] MEDS: ASPIRIN 81 MG CHEW TABLET PO SCH (08:32)
[2022-01-10] MEDS: SERTRALINE 100 MG TAB PO SCH (08:32)
[2022-01-10] MEDS: predniSONE 20 MG TAB PO SCH (08:34)
[2022-01-10] MEDS: MIDODRINE 5 MG TAB PO SCH ×3 (08:34→17:07)
[2022-01-10] MEDS: PANTOPRAZOLE 40MG TAB (PROTONIX) PO SCH ×2 (08:34→20:22)
[2022-01-10] MEDS: APIXABAN 5 MG TAB (ELIQUIS) PO SCH ×2 (08:34→20:22)
[2022-01-10] MEDS: DIGOXIN 0.125 MG TAB PO SCH (08:34)
[2022-01-11] MEDS: METOPROLOL TART 12.5 MG PER 1/2 TAB PO SCH ×5 (00:14→23:09)
[2022-01-11 06:00] VITALS: BP 108/73
[2022-01-11] MEDS: ALBUTEROL SULFATE 2.5 MG/0.5 ML INH NEB SOLN NEB SCH ×4 (07:34→19:59)
[2022-01-11] MEDS: TIOTROPIUM INHALER/CAPSULE (SPIRIVA) INH SCH (07:34)
[2022-01-11] MEDS: LACTOBACILLUS ACIDOPHILUS CAP (BACID) PO SCH ×3 (08:44→16:55)
[2022-01-11] MEDS: SERTRALINE 100 MG TAB PO SCH (08:45)
[2022-01-11] MEDS: MIDODRINE 5 MG TAB PO SCH ×3 (08:45→16:54)
[2022-01-11] MEDS: PANTOPRAZOLE 40MG TAB (PROTONIX) PO SCH ×2 (08:45→20:40)
[2022-01-11] MEDS: predniSONE 20 MG TAB PO SCH (08:45)
[2022-01-11] MEDS: DIGOXIN 0.125 MG TAB PO SCH (08:47)
[2022-01-11] MEDS: ARIPiprazole 10 MG TAB PO SCH (08:48)
[2022-01-11] MEDS: APIXABAN 5 MG TAB (ELIQUIS) PO SCH ×2 (08:48→20:40)
[2022-01-11] MEDS: ASPIRIN 81 MG CHEW TABLET PO SCH (08:48)
[2022-01-11 16:56] VITALS: BP 113/72
[2022-01-12] MEDS: METOPROLOL TART 12.5 MG PER 1/2 TAB PO SCH ×4 (05:04→23:21)
[2022-01-12 06:00] VITALS: BP 105/71
[2022-01-12] MEDS: TIOTROPIUM INHALER/CAPSULE (SPIRIVA) INH SCH (07:38)
[2022-01-12] MEDS: ALBUTEROL SULFATE 2.5 MG/0.5 ML INH NEB SOLN NEB SCH ×4 (07:38→19:59)
[2022-01-12] MEDS: MIDODRINE 5 MG TAB PO SCH ×3 (08:33→16:45)
[2022-01-12] MEDS: PANTOPRAZOLE 40MG TAB (PROTONIX) PO SCH ×2 (08:34→20:34)
[2022-01-12] MEDS: predniSONE 20 MG TAB PO SCH (08:34)
[2022-01-12] MEDS: ARIPiprazole 10 MG TAB PO SCH (08:34)
[2022-01-12] MEDS: SERTRALINE 100 MG TAB PO SCH (08:34)
[2022-01-12] MEDS: DIGOXIN 0.125 MG TAB PO SCH (08:34)
[2022-01-12] MEDS: LACTOBACILLUS ACIDOPHILUS CAP (BACID) PO SCH ×3 (08:34→16:46)
[2022-01-12] MEDS: ASPIRIN 81 MG CHEW TABLET PO SCH (08:34)
[2022-01-12] MEDS: APIXABAN 5 MG TAB (ELIQUIS) PO SCH ×2 (08:34→20:34)
[2022-01-13] MEDS: METOPROLOL TART 12.5 MG PER 1/2 TAB PO SCH ×4 (05:42→23:56)
[2022-01-13 06:00] VITALS: BP 113/78
[2022-01-13] MEDS: TIOTROPIUM INHALER/CAPSULE (SPIRIVA) INH SCH (07:35)
[2022-01-13] MEDS: ALBUTEROL SULFATE 2.5 MG/0.5 ML INH NEB SOLN NEB SCH ×4 (07:35→19:17)
[2022-01-13] MEDS: LACTOBACILLUS ACIDOPHILUS CAP (BACID) PO SCH ×3 (08:05→16:44)
[2022-01-13] MEDS: MIDODRINE 5 MG TAB PO SCH ×3 (08:05→16:44)
[2022-01-13] MEDS: PANTOPRAZOLE 40MG TAB (PROTONIX) PO SCH ×2 (08:05→20:22)
[2022-01-13] MEDS: ASPIRIN 81 MG CHEW TABLET PO SCH (08:05)
[2022-01-13] MEDS: ARIPiprazole 10 MG TAB PO SCH (08:05)
[2022-01-13] MEDS: APIXABAN 5 MG TAB (ELIQUIS) PO SCH ×2 (08:06→20:23)
[2022-01-13] MEDS: predniSONE 20 MG TAB PO SCH (08:06)
[2022-01-13] MEDS: SERTRALINE 100 MG TAB PO SCH (08:06)
[2022-01-13] MEDS: DIGOXIN 0.125 MG TAB PO SCH (08:06)
[2022-01-13 14:00] VITALS: BP 114/88
[2022-01-14] VITALS (11 sets, daily range): BP systolic 94–159; BP diastolic 59–110
[2022-01-14] MEDS: METOPROLOL TART 12.5 MG PER 1/2 TAB PO SCH ×4 (05:35→23:07)
[2022-01-14 06:26] LABS: HEMATOCRIT 22.8 % (36.0-47.0); MEAN CORPUSCULAR HGB CONC 29.4 g/dl (32.0-36.5); MEAN CORPUSCULAR VOLUME 105.6 fl (80.0-96.0); PLATELET COUNT, AUTOMATED 166 10^3/uL (150-450); RED BLOOD COUNT 2.16 10^6/uL (4.00-5.40); WHITE BLOOD COUNT 5.2 10^3/uL (4.0-10.0)
[2022-01-14 06:32] LABS: HEMOGLOBIN 6.7 g/dl (12.0-15.5)
[2022-01-14 06:33] LABS: CALCIUM LEVEL 8.4 MG/DL (8.8-10.2); CREATININE FOR GFR 1.19 MG/DL (0.55-1.30); GLOMERULAR FILTRATION RATE 47.9 (>45); POTASSIUM SERUM 3.8 MEQ/L (3.5-5.1)
[2022-01-14] MEDS: ALBUTEROL SULFATE 2.5 MG/0.5 ML INH NEB SOLN NEB SCH ×4 (07:21→19:49)
[2022-01-14] MEDS: TIOTROPIUM INHALER/CAPSULE (SPIRIVA) INH SCH (07:22)
[2022-01-14] MEDS: PANTOPRAZOLE 40MG TAB (PROTONIX) PO SCH ×2 (08:49→20:30)
[2022-01-14] MEDS: LACTOBACILLUS ACIDOPHILUS CAP (BACID) PO SCH ×3 (08:50→17:37)
[2022-01-14] MEDS: ARIPiprazole 10 MG TAB PO SCH (08:50)
[2022-01-14] MEDS: MIDODRINE 5 MG TAB PO SCH ×4 (08:50→19:02)
[2022-01-14] MEDS: DIGOXIN 0.125 MG TAB PO SCH (08:50)
[2022-01-14] MEDS: APIXABAN 5 MG TAB (ELIQUIS) PO SCH (08:50)
[2022-01-14] MEDS: ASPIRIN 81 MG CHEW TABLET PO SCH (08:50)
[2022-01-14] MEDS: predniSONE 10 MG TAB PO SCH (08:51)
[2022-01-14] MEDS: SERTRALINE 100 MG TAB PO SCH (08:51)
[2022-01-14] MEDS ORDERED: LIDOCAINE 1% MDV 20ML VIAL As Ordered ONE (14:49)
[2022-01-15 01:05] LABS: HEMATOCRIT 29.9 % (36.0-47.0); MEAN CORPUSCULAR HEMOGLOBIN 30.6 pg (27.0-33.0); MEAN CORPUSCULAR HGB CONC 31.8 g/dl (32.0-36.5); MEAN CORPUSCULAR VOLUME 96.5 fl (80.0-96.0); PLATELET COUNT, AUTOMATED 162 10^3/uL (150-450); WHITE BLOOD COUNT 7.6 10^3/uL (4.0-10.0)
[2022-01-15 01:06] LABS: HEMOGLOBIN 9.5 g/dl (12.0-15.5)
[2022-01-15] MEDS: METOPROLOL TART 12.5 MG PER 1/2 TAB PO SCH ×3 (05:16→17:07)
[2022-01-15] MEDS: SODIUM CHLORIDE 0.9% INJ 10 ML SYR IV SCH ×2 (05:17→17:08)
[2022-01-15] MEDS ORDERED: SODIUM CHLORIDE 0.9% INJ 10 ML SYR IV PRN (06:00)
[2022-01-15 06:01] VITALS: BP 143/96
[2022-01-15] MEDS: TIOTROPIUM INHALER/CAPSULE (SPIRIVA) INH SCH (07:17)
[2022-01-15] MEDS: ALBUTEROL SULFATE 2.5 MG/0.5 ML INH NEB SOLN NEB SCH ×4 (07:17→19:42)
[2022-01-15] MEDS: MIDODRINE 5 MG TAB PO SCH ×3 (08:00→17:07)
[2022-01-15] MEDS: ARIPiprazole 10 MG TAB PO SCH (08:07)
[2022-01-15] MEDS: LACTOBACILLUS ACIDOPHILUS CAP (BACID) PO SCH ×3 (08:07→17:07)
[2022-01-15] MEDS: predniSONE 10 MG TAB PO SCH (08:07)
[2022-01-15] MEDS: ASPIRIN 81 MG CHEW TABLET PO SCH (08:07)
[2022-01-15] MEDS: SERTRALINE 100 MG TAB PO SCH (08:08)
[2022-01-15] MEDS: PANTOPRAZOLE 40MG TAB (PROTONIX) PO SCH ×2 (08:08→19:52)
[2022-01-15] MEDS: DIGOXIN 0.125 MG TAB PO SCH (08:08)
[2022-01-15 09:54] LABS: HEMATOCRIT 30.1 % (36.0-47.0); HEMOGLOBIN 9.6 g/dl (12.0-15.5); MEAN CORPUSCULAR HEMOGLOBIN 30.8 pg (27.0-33.0); MEAN CORPUSCULAR HGB CONC 31.9 g/dl (32.0-36.5); MEAN CORPUSCULAR VOLUME 96.5 fl (80.0-96.0); PLATELET COUNT, AUTOMATED 166 10^3/uL (150-450); RED BLOOD COUNT 3.12 10^6/uL (4.00-5.40); WHITE BLOOD COUNT 7.3 10^3/uL (4.0-10.0)
[2022-01-15 12:09] VITALS: BP 122/76
[2022-01-16] MEDS: METOPROLOL TART 12.5 MG PER 1/2 TAB PO SCH ×5 (00:16→23:31)
[2022-01-16] MEDS: SODIUM CHLORIDE 0.9% INJ 10 ML SYR IV SCH ×2 (05:40→17:07)
[2022-01-16 06:00] VITALS: BP 125/78
[2022-01-16] MEDS: ALBUTEROL SULFATE 2.5 MG/0.5 ML INH NEB SOLN NEB SCH ×4 (07:33→17:42)
[2022-01-16] MEDS: TIOTROPIUM INHALER/CAPSULE (SPIRIVA) INH SCH (07:33)
[2022-01-16] MEDS: LACTOBACILLUS ACIDOPHILUS CAP (BACID) PO SCH ×3 (09:30→17:04)
[2022-01-16] MEDS: APIXABAN 5 MG TAB (ELIQUIS) PO SCH ×2 (09:30→20:46)
[2022-01-16] MEDS: ASPIRIN 81 MG CHEW TABLET PO SCH (09:30)
[2022-01-16] MEDS: predniSONE 10 MG TAB PO SCH (09:31)
[2022-01-16] MEDS: DIGOXIN 0.125 MG TAB PO SCH (09:31)
[2022-01-16] MEDS: MIDODRINE 5 MG TAB PO SCH ×3 (09:31→17:03)
[2022-01-16] MEDS: ARIPiprazole 10 MG TAB PO SCH (09:31)
[2022-01-16] MEDS: SERTRALINE 100 MG TAB PO SCH (09:31)
[2022-01-16] MEDS: PANTOPRAZOLE 40MG TAB (PROTONIX) PO SCH ×2 (09:31→20:46)
[2022-01-17] MEDS: SODIUM CHLORIDE 0.9% INJ 10 ML SYR IV SCH ×2 (05:35→17:18)
[2022-01-17] MEDS: METOPROLOL TART 12.5 MG PER 1/2 TAB PO SCH ×4 (05:37→23:50)
[2022-01-17] MEDS: TIOTROPIUM INHALER/CAPSULE (SPIRIVA) INH SCH (07:29)
[2022-01-17] MEDS: ALBUTEROL SULFATE 2.5 MG/0.5 ML INH NEB SOLN NEB SCH ×4 (07:29→19:51)
[2022-01-17] MEDS: predniSONE 10 MG TAB PO SCH (09:20)
[2022-01-17] MEDS: ARIPiprazole 10 MG TAB PO SCH (09:20)
[2022-01-17] MEDS: PANTOPRAZOLE 40MG TAB (PROTONIX) PO SCH ×2 (09:20→20:57)
[2022-01-17] MEDS: LACTOBACILLUS ACIDOPHILUS CAP (BACID) PO SCH ×3 (09:20→17:15)
[2022-01-17] MEDS: ASPIRIN 81 MG CHEW TABLET PO SCH (09:20)
[2022-01-17] MEDS: APIXABAN 5 MG TAB (ELIQUIS) PO SCH ×2 (09:21→20:57)
[2022-01-17] MEDS: DIGOXIN 0.125 MG TAB PO SCH (09:21)
[2022-01-17] MEDS: SERTRALINE 100 MG TAB PO SCH (09:21)
[2022-01-17] MEDS: MIDODRINE 5 MG TAB PO SCH ×3 (09:21→17:15)
[2022-01-17 09:50] LABS: HEMATOCRIT 31.9 % (36.0-47.0); HEMOGLOBIN 9.7 g/dl (12.0-15.5); MEAN CORPUSCULAR HEMOGLOBIN 30.3 pg (27.0-33.0); MEAN CORPUSCULAR HGB CONC 30.4 g/dl (32.0-36.5); MEAN CORPUSCULAR VOLUME 99.7 fl (80.0-96.0); PLATELET COUNT, AUTOMATED 160 10^3/uL (150-450)
[2022-01-18] MEDS: SODIUM CHLORIDE 0.9% INJ 10 ML SYR IV SCH ×2 (05:59→18:18)
[2022-01-18] MEDS: METOPROLOL TART 12.5 MG PER 1/2 TAB PO SCH ×3 (05:59→17:48)
[2022-01-18 06:00] VITALS: BP 137/92
[2022-01-18] MEDS: TIOTROPIUM INHALER/CAPSULE (SPIRIVA) INH SCH (07:09)
[2022-01-18] MEDS: ALBUTEROL SULFATE 2.5 MG/0.5 ML INH NEB SOLN NEB SCH ×4 (07:10→19:35)
[2022-01-18] MEDS: ASPIRIN 81 MG CHEW TABLET PO SCH (08:11)
[2022-01-18] MEDS: PANTOPRAZOLE 40MG TAB (PROTONIX) PO SCH ×2 (08:11→20:00)
[2022-01-18] MEDS: ARIPiprazole 10 MG TAB PO SCH (08:11)
[2022-01-18] MEDS: MIDODRINE 5 MG TAB PO SCH ×3 (08:12→16:09)
[2022-01-18] MEDS: APIXABAN 5 MG TAB (ELIQUIS) PO SCH ×2 (08:12→20:00)
[2022-01-18] MEDS: LACTOBACILLUS ACIDOPHILUS CAP (BACID) PO SCH ×3 (08:12→17:58)
[2022-01-18] MEDS: SERTRALINE 100 MG TAB PO SCH (08:12)
[2022-01-18] MEDS: DIGOXIN 0.125 MG TAB PO SCH (08:13)
[2022-01-18] MEDS: predniSONE 10 MG TAB PO SCH (08:15)
[2022-01-18 13:00] LABS: HEMATOCRIT 32.6 % (36.0-47.0); HEMOGLOBIN 10.1 g/dl (12.0-15.5); MEAN CORPUSCULAR HEMOGLOBIN 30.8 pg (27.0-33.0); MEAN CORPUSCULAR VOLUME 99.4 fl (80.0-96.0); PLATELET COUNT, AUTOMATED 192 10^3/uL (150-450); RED BLOOD COUNT 3.28 10^6/uL (4.00-5.40); WHITE BLOOD COUNT 7.6 10^3/uL (4.0-10.0)
[2022-01-19 06:00] VITALS: BP 104/71
[2022-01-19] MEDS: METOPROLOL TART 12.5 MG PER 1/2 TAB PO SCH ×5 (06:00→23:05)
[2022-01-19] MEDS: SODIUM CHLORIDE 0.9% INJ 10 ML SYR IV SCH ×2 (06:16→16:43)
[2022-01-19] MEDS: ALBUTEROL SULFATE 2.5 MG/0.5 ML INH NEB SOLN NEB SCH ×4 (07:21→20:07)
[2022-01-19] MEDS: TIOTROPIUM INHALER/CAPSULE (SPIRIVA) INH SCH (07:21)
[2022-01-19] MEDS: PANTOPRAZOLE 40MG TAB (PROTONIX) PO SCH ×2 (08:08→20:27)
[2022-01-19] MEDS: ASPIRIN 81 MG CHEW TABLET PO SCH (08:08)
[2022-01-19] MEDS: APIXABAN 5 MG TAB (ELIQUIS) PO SCH ×2 (08:08→20:27)
[2022-01-19] MEDS: LACTOBACILLUS ACIDOPHILUS CAP (BACID) PO SCH ×3 (08:08→16:43)
[2022-01-19] MEDS: MIDODRINE 5 MG TAB PO SCH ×3 (08:09→16:43)
[2022-01-19] MEDS: ARIPiprazole 10 MG TAB PO SCH (08:09)
[2022-01-19] MEDS: predniSONE 10 MG TAB PO SCH (08:09)
[2022-01-19] MEDS: SERTRALINE 100 MG TAB PO SCH (08:09)
[2022-01-19] MEDS: DIGOXIN 0.125 MG TAB PO SCH (08:09)
[2022-01-19 14:00] VITALS: BP 121/85
[2022-01-20 06:00] VITALS: BP 108/71
[2022-01-20] MEDS: METOPROLOL TART 12.5 MG PER 1/2 TAB PO SCH ×3 (06:28→17:49)
[2022-01-20] MEDS: SODIUM CHLORIDE 0.9% INJ 10 ML SYR IV SCH ×2 (06:34→17:50)
[2022-01-20] MEDS: ALBUTEROL SULFATE 2.5 MG/0.5 ML INH NEB SOLN NEB SCH ×4 (07:30→18:05)
[2022-01-20] MEDS: TIOTROPIUM INHALER/CAPSULE (SPIRIVA) INH SCH (07:30)
[2022-01-20] MEDS: MIDODRINE 5 MG TAB PO SCH ×3 (08:00→16:00)
[2022-01-20] MEDS: ASPIRIN 81 MG CHEW TABLET PO SCH (08:41)
[2022-01-20] MEDS: LACTOBACILLUS ACIDOPHILUS CAP (BACID) PO SCH ×3 (08:42→17:50)
[2022-01-20] MEDS: PANTOPRAZOLE 40MG TAB (PROTONIX) PO SCH ×2 (08:47→20:15)
[2022-01-20] MEDS: predniSONE 10 MG TAB PO SCH (08:47)
[2022-01-20] MEDS: ARIPiprazole 10 MG TAB PO SCH (08:47)
[2022-01-20] MEDS: SERTRALINE 100 MG TAB PO SCH (08:47)
[2022-01-20] MEDS: APIXABAN 5 MG TAB (ELIQUIS) PO SCH ×2 (08:47→20:15)
[2022-01-20] MEDS: DIGOXIN 0.125 MG TAB PO SCH (08:48)
[2022-01-20 22:35] VITALS: BP 121/85
[2022-01-21] MEDS: METOPROLOL TART 12.5 MG PER 1/2 TAB PO SCH ×3 (00:38→12:44)
[2022-01-21] MEDS: SODIUM CHLORIDE 0.9% INJ 10 ML SYR IV SCH (05:17)
[2022-01-21 05:54] VITALS: BP 87/63
[2022-01-21] MEDS: ALBUTEROL SULFATE 2.5 MG/0.5 ML INH NEB SOLN NEB SCH (07:16)
[2022-01-21] MEDS: TIOTROPIUM INHALER/CAPSULE (SPIRIVA) INH SCH (07:16)
[2022-01-21] MEDS: ASPIRIN 81 MG CHEW TABLET PO SCH (08:55)
[2022-01-21] MEDS: predniSONE 10 MG TAB PO SCH (08:56)
[2022-01-21] MEDS: LACTOBACILLUS ACIDOPHILUS CAP (BACID) PO SCH ×2 (08:56→12:44)
[2022-01-21] MEDS: PANTOPRAZOLE 40MG TAB (PROTONIX) PO SCH (08:56)
[2022-01-21] MEDS: DIGOXIN 0.125 MG TAB PO SCH (08:56)
[2022-01-21] MEDS: SERTRALINE 100 MG TAB PO SCH (08:56)
[2022-01-21] MEDS: APIXABAN 5 MG TAB (ELIQUIS) PO SCH (08:56)
[2022-01-21] MEDS: MIDODRINE 5 MG TAB PO SCH ×2 (08:56→12:44)
[2022-01-21] MEDS: ARIPiprazole 10 MG TAB PO SCH (08:57)
[2022-01-21] MEDS ORDERED: DIGO0.123 PO (09:56)
[2022-01-21] MEDS ORDERED: PRED10TA2 PO (09:56)
[2022-01-21] MEDS ORDERED: METO1TAB87 PO ×2 (09:56→09:57)
[2022-01-21 12:44] VITALS: BP 111/83
== END 2022-01-21 12:50 | DRG 871 ==
LOC: EEVIPCON 12-23 00:45 → M ICU 12-23 00:45 → M PCU 12-27 15:52 → M MS4PR 01-01 17:03 → M MS5PR 01-06 17:00
PROVIDERS: ADMIT Internal Medicine; ATTEND Internal Medicine
PROC: 30233N1 Transfusion of Nonautologous Red Blood Cells into Peripheral Vein, Percutaneous Approach (ICD-10-PCS; 2021-12-26)
PROC: 05HA33Z Insertion of Infusion Device into Left Brachial Vein, Percutaneous Approach (ICD-10-PCS; principal; 2022-01-14 16:00)
DX: A41.9 Sepsis, unspecified organism (principal); J18.9 Pneumonia, unspecified organism; R65.21 Severe sepsis with septic shock; J96.01 Acute respiratory failure with hypoxia; I50.43 Acute on chronic combined systolic (congestive) and diastolic (congestive) heart failure; I21.A1 Myocardial infarction type 2; I13.0 Hypertensive heart and chronic kidney disease with heart failure and stage 1 through stage 4 chronic kidney disease, or unspecified chronic kidney disease; I42.8 Other cardiomyopathies; D61.818 Other pancytopenia; E87.2 Acidosis; I48.20 Chronic atrial fibrillation, unspecified; J44.0 Chronic obstructive pulmonary disease with (acute) lower respiratory infection; J44.1 Chronic obstructive pulmonary disease with (acute) exacerbation; I27.20 Pulmonary hypertension, unspecified; M79.89 Other specified soft tissue disorders; N18.30 Chronic kidney disease, stage 3 unspecified; E87.6 Hypokalemia; Z85.3 Personal history of malignant neoplasm of breast; Z90.49 Acquired absence of other specified parts of digestive tract; Z90.11 Acquired absence of right breast and nipple; D64.9 Anemia, unspecified; D69.6 Thrombocytopenia, unspecified; Y95 Nosocomial condition; Z99.81 Dependence on supplemental oxygen; Z79.01 Long term (current) use of anticoagulants; Z79.82 Long term (current) use of aspirin; Z79.899 Other long term (current) drug therapy